=== PATIENT | male | born 1990 ===

== ENCOUNTER 2018-05-14 19:46 | Emergency (ER) | payer SELFPAY ==
[~2018-05-14] VITALS: Ht 185.4 cm; Wt 113.4 kg
--- NOTE | 2018-05-14 20:24 | NUR ---
DR SARI CESPEDES MD AT BEDSIDE FOR MSE.
[2018-05-14 21:09] VITALS: BP 133/74
--- NOTE | 2018-05-14 21:09 | NUR ---
Patient discharged to home in stable conditon. Written and verbal after care instructions given. Patient verbalizes understanding of instructions. PT ambulated from ER w/ steady gait. Pt took all personal belongings. No distress noted.
== END 2018-05-14 21:11 | disposition home or self-care (01) ==
LOC: ER 19:49
DX: K64.9 Unspecified hemorrhoids (principal); Z88.8 Allergy status to other drugs, medicaments and biological substances
CPT/HCPCS: A4663